=== PATIENT | female | born 1975 | race African-American/Black ===

== ENCOUNTER → 2018-06-17 | Outpatient (CLI) | payer OTHER ==
--- NOTE | 2018-06-17 16:15 | KCIC ---
MRI Lumbar Spine without contrast History: Low back pain, degenerative disc disease, spondylosis, radiculitis, right leg pain Technique: Multiplanar, multi sequential noncontrast MR imaging was performed of the lumbar spine. Comparison: None Findings: There is some motion degradation. Lumbar vertebral body stature and AP alignment are maintained. There is nonspecific relative diffuse decreased T1 and T2 signal of the marrow. There is minimal edema of the anterior superior corners of L3-T12. The conus terminates near L1. There may be some sclerosis about the sacroiliac joints poorly evaluated on this exam. L2-L3: Neural foramina and spinal canal are adequate. L3-L4: There is small anterior annular tear. Neural foramina and spinal canal are adequate. L4-L5: Spinal canal and neural foramina are adequate. L5-S1: Spinal canal and neural foramina are adequate. Impression: 1. There is no significant lumbar spinal stenosis or neural foramina compromise. 2. There is relative diffuse decreased T1 and T2 signal of the marrow, nonspecific findings possibly due to hyperplastic red marrow as can be associated with chronic or systemic stress reaction or hypoxia. 3. There may be some sclerosis associated with sacroiliac joints bilaterally. 4. There is very minimal edema of the anterior superior corners at L2 and T12. Pattern can be associated with seronegative spondyloarthropathy in the appropriate clinical setting. Electronically signed by: Camron Lowry MD (06/17/2018 4:12 PM) [id number]
== END | disposition home or self-care (01) ==
LOC: KCIC MRI 15:17
PROVIDERS: ATTEND Anesthesiology Pain Medicine
DX: M51.16 Intervertebral disc disorders with radiculopathy, lumbar region (principal); M47.26 Other spondylosis with radiculopathy, lumbar region; R60.9 Edema, unspecified
CPT/HCPCS: 72148